=== PATIENT | female | born 1955 | race Caucasian/White ===

== ENCOUNTER 2016-07-20 13:17 | Emergency (ER) | payer BC ==
--- NOTE | 2016-07-20 14:43 | ED ---
Throat Pain/Nasal Congestion - History of Current Complaint Chief Complaint: EDEyeProblem Hx Obtained From: Patient Onset/Duration: Sudden Onset - was reading newspaper today when saw a flash of light in L eye and now has floaters. no pain, redness or drainage. no loss eyesight Associated Signs And Symptoms: Positive: Negative - Allergies/Home Medications Allergies/Adverse Reactions: Allergies Allergy/AdvReac Type Severity Reaction Status Date / Time No Known Allergies Allergy Verified 07/20/16 13:50 PMH/Surg Hx/FS Hx/Imm Hx Previously Healthy: Yes Endocrine/Hematology History: Denies: Hx Diabetes, Hx Thyroid Disease Cardiovascular History: Denies: Hx Hypertension, Hx Pacemaker/ICD Respiratory History: Denies: Hx Asthma, Hx Chronic Obstructive Pulmonary Disease (COPD) GI History: Reports: Hx Gastroesophageal Reflux Disease - ON MEDICATION FOR Denies: Hx Ulcer History: Denies: Hx Dialysis, Hx Renal Disease Musculoskeletal History: Reports: Hx Arthritis - HANDS, KNEES, ELBOWS, AND SPINE , Other Musculoskeletal History - Chronic Pain Sensory History: Reports: Hx Contacts or Glasses - GLASSES, Other Sensory Impairments - states had small retinal detachment 1-2years ago that healed w/o treatment Denies: Hx Hearing Aid Opthamlomology History: Reports: Hx Contacts or Glasses - GLASSES, Hx Macular Degeneration Denies: Hx Cataracts Neurological History: Denies: Hx Migraine Psychiatric History: Reports: Hx Depression - ON MEDICATION FOR Denies: Hx Panic Disorder - Cancer History Cancer Type, Location and Year: RT BREAST - LUMPECTOMY Hx Chemotherapy: No Hx Radiation Therapy: Yes - BREAST - Surgical History Surgery Procedure, Year, and Place: 2007 Lumpectomy - Rt BREAST W/ RADIATION. Cholecystectomy. Esophageal Stricture. Tonsillectomy. Sinus Surgery. Hysterectomy 08/22. VULVECTOMY - PARTIAL Hx Anesthesia Reactions: No Infectious Disease History: No Infectious Disease History: Denies: Hx Hepatitis, Hx Human Immunodeficiency Virus (HIV), Traveled Outside the [place] in Last 30 Days - Family History Known Family History: Positive: Hypertension, Other - CVA (father) - Social History Occupation: Employed Full-time Lives: With Family Alcohol Use: Weekly Alcohol Amount: 1-2 times per week Substance Use Type: Reports: None Substance Use Comment - Amount & Last Used: tramadol Smoking Status (MU): Former Smoker Type: Cigarettes Review of Systems Constitutional: Negative Negative: Fever, Chills Positive: Other - see note Cardiovascular: Negative Respiratory: Negative Gastrointestinal: Negative Negative: Vomiting Musculoskeletal: Negative Skin: Negative Negative: Rash Neurological: Negative Negative: Headache, Weakness Psychological: Normal All Other Systems Reviewed And Are Negative: Yes Physical Exam Triage Information Reviewed: Yes Vital Signs On Initial Exam: Initial Vitals Temp Pulse Resp BP Pulse Ox 98.1 F 72 15 124/81 99 07/20/16 13:20 07/20/16 13:20 07/20/16 13:20 07/20/16 13:20 07/20/16 13:20 Vital Signs Reviewed: Yes Appearance: Positive: Well-Appearing, No Pain Distress, Well-Nourished Skin: Positive: Warm, Skin Color Reflects Adequate Perfusion, Dry Head/Face: Positive: Normal Head/Face Inspection Eyes: Positive: EOMI, VALENTE, Conjunctiva Clear, Other: - detached retina not detected fundoscopic exam normal. Negative: Discharge Respiratory/Lung Sounds: Positive: Clear to Auscultation Cardiovascular: Positive: Normal Neurological: Positive: Normal, Sensory/Motor Intact, Alert, Oriented to Person Place, Time Psychiatric: Positive: Normal Diagnostics - Vital Signs Vital Signs Temp Pulse Resp BP Pulse Ox 07/20/16 13:20 98.1 F 72 15 124/81 99 - Laboratory Lab Statement: Any lab studies that have been ordered have been reviewed, and results considered in the medical decision making process. EENT Course/Dx - Differential Diagnoses Differential Diagnoses: Conjunctivitis, Detached Retina, Other - macular degeneration - Diagnoses Provider Diagnoses: Floaters in visual field Discharge - Discharge Plan Condition: Stable Disposition: HOME Patient Education Materials: Visual Floaters (ED) Forms: *Work Release Referrals: Sagrario Medel MD [Primary Care Provider] - Law Fink MD [Medical Doctor] - (call tomorrow morning to be examined) Additional Instructions: If anything worsens at anytime-return to ER Rest, be seen by Dr. Fink tomorrow
[2016-07-20 15:00] VITALS: BP 127/68
== END 2016-07-20 14:58 | disposition home or self-care (01) ==
LOC: ED 13:17
DX: H43.392 Other vitreous opacities, left eye (principal); F32.9 Major depressive disorder, single episode, unspecified; Z87.891 Personal history of nicotine dependence
CPT/HCPCS: 99282

== ENCOUNTER 2019-09-24 13:21 | Emergency (ER) | payer OTHER ==
--- OUTSIDE RECORDS SUMMARY | 2019-09-24 13:28 | XMS REPORT | Continuity of Care Document ---
:1955 External Reference #:[id number] Author Name Nikki Steinberg, N.P. (transmitted by agent of provider Shelly Santos) Address [address], [place] [address] Care Team Providers Name Role Phone Sagrario Medel MD - Internal Care Team Information Leather Case Finisher [phone] Medicine Mario Gilbert MD - Hematology Care Team Information Leather Case Finisher [phone] Clarissa Lowe OD - Tar Pot Worker Care Team Information Leather Case Finisher Problems Active Problems Provider Date Malignant neoplasm of female breast Sagrario Medel M.D. Onset: 08/09/2010 Chronic neck pain Sagrario Medel M.D. Onset: 06/28/2015 Vulval intraepithelial neoplasia grade 3 Sagrario Medel M.D. Onset: 2014 Social History Type Date Description Comments Sex Unknown Tobacco Use Start: Unknown End: Former Cigarette Smoker 1 Unknown Pack Daily Cigarette Use Pack Years - 20 Cigarette Use Quit - Age 41 ETOH Use Drinks 4 Alcoholic Beverages on weekends only Per Week Tobacco Use Start: Unknown End: Patient is a former smoker quit 1996 Unknown Smoking Status Reviewed: 08/15/19 Patient is a former smoker quit 1996 Allergies, Adverse Reactions, Alerts Description No Known Drug Allergies Medications Active Medications SIG Qnty Indications Ordering Date Provider Atorvastatin Calcium take 1 tablet 30tabs E78.00 Nikki Steinberg, 08/15/2019 20mg Tablets by mouth at N.P. bedtime Hydrochlorothiazide 1 by mouth 90tabs I10 Nikki Steinberg, 08/15/2019 25mg Tablets every day N.P. Trazodone HCL 1 and 1/2 45tabs Sagrario 06/28/2015 50mg Tablets tablets once Eliana Medel. daily at bedtime Centrum Silver 1 po qd Unknown Chewtabs Cymbalta 1 po qd Unknown 40mg Caps DR Part Acetaminophen take 2 tablets 100caps Unknown 500mg Capsules three times daily as needed Bupropion HCL ER (SR) 1 by mouth 60tabs Unknown 150mg once daily Tablets ER 12HR Naproxen 1 tablet with Unknown 500mg Tablets food by mouth twice a day Nucynta ER take 1 tablet Unknown 100mg Tablets ER 12HR by mouth twice a day if needed for pain Hydrocodone-Acetaminophen Unknown 5-325mg Tablets Medications Administered in Office Medication SIG Qnty Indications Ordering Provider Date Records Fee Sagrario Medel M.D. 05/17/2019 Injection Influenza,Unspecified Unknown 03/19/2018 Injection Immunizations CPT Code Status Date Vaccine Lot # [id number] Given 02/06/2018 Zoster (Shingles) Vaccine (HZV), Recombinant, Subunit, Adjuvanted 04225 Given 08/09/2017 Zoster (Shingles) Vaccine (HZV), Recombinant, Subunit, Adjuvanted 14198 Given 05/08/2017 Influenza Virus Vaccine, Quadrivalent, Split, Preservative Free [id number] Given 04/02/2016 Afluria Vaccine 06547 Given 03/31/2015 Influenza Virus Vaccine, Quadrivalent, Split, Preservative Free [id number] Given 03/08/2012 Tdap - Tetanus/Diptheria/Acellular Pertussis [id number] Vital Signs Date Vital Result Comment 08/15/2019 9:21am Height 61.5 inches 5'1.50" Weight 129.38 lb Heart Rate 79 /min BP Systolic Sitting 140 mmHg BP Diastolic Sitting 80 mmHg Body Temperature 97.6 F O2 % BldC Oximetry 97 % BMI (Body Mass Index) 24.0 kg/m2 08/12/2018 11:26am Height 61.5 inches 5'1.50" Weight 126.00 lb Heart Rate 72 /min BP Systolic 148 mmHg BP Diastolic 86 mmHg Body Temperature 98.6 F O2 % BldC Oximetry 95 % BMI (Body Mass Index) 23.4 kg/m2 Results Test Acquired Date Facility Test Result H/L Range Note Lipid Profile 08/09/2019 [facility] Triglycerides 165 mg/dL 1 (Trig/Chol/HDL) [address] [place] [address] [phone] Cholesterol 264 mg/dL 2 HDL Cholesterol 79.9 mg/dL 3 LDL Cholesterol 151 mg/dL 4 Comp Metabolic 08/09/2019 [facility] Sodium 142 mmol/L Normal 135-[address] [place] [address] [phone] Potassium 4.9 mmol/L Normal 3.5-5.0 Chloride 106 mmol/L Normal 101-111 Co2 Carbon Dioxide 31 mmol/L Normal 22-32 Anion Gap 5 mmol/L Normal 2-11 Glucose 87 mg/dL Normal 70-100 Blood Urea Nitrogen 18 mg/dL Normal 6-24 Creatinine 0.85 mg/dL Normal 0.51-0.95 BUN/Creatinine Ratio 21.2 High 8-20 Calcium 9.3 mg/dL Normal 8.6-10.3 Total Protein 6.4 g/dL Normal 6.4-8.9 Albumin 4.4 g/dL Normal 3.2-5.2 Globulin 2.0 g/dL Normal 2-4 Albumin/Globulin Ratio 2.2 Normal 1-3 Total Bilirubin 0.60 mg/dL Normal 0.2-1.0 Alkaline Phosphatase 93 U/L Normal 34-104 Alt 25 U/L Normal 7-52 Ast 23 U/L Normal 13-39 Egfr Non- 68.0 >60 Egfr 82.3 >60 5 Drug Screen 07/29/2019 [facility] Urine None Detected None Detect Urine Pain [address] [place] [address] Screen [phone] Urine Oxycodone Screen None Detected None Detect Urine Fentanyl Screen None Detected None Detect Urine Methadone Screen None Detected None Detect Urine Buprenorphine Screen None Detected None Detect Urine Amphetamine Screen None Detected None Detect Urine Barbiturates Screen None Detected None Detect Urine Benzodiazepine Screen None Detected None Detect Urine Cannabinoids Screen None Detected None Detect Urine Cocaine Screen None Detected None Detect Urine Opiates Screen Presumptive Posi <SEE NOTE> Abnormal None Detect 6 Urine Phencyclidine Screen None Detected None Detect 7 Opiates 07/29/2019 [facility] Codeine Negative Cutoff: [address] Confirmation, ng/[place] [address] Urine [phone] Dihydrocodeine Conf, Urine 139 ng/mL Cutoff: 25 Hydrocodone Confirm, Urine 101 ng/mL Cutoff: 25 Norhydrocodone Confirm, Urine 379 ng/mL Cutoff: 25 Hydromorphone Confirm, Urine 39 ng/mL Cutoff: 25 Morphine Confirm, Urine Negative ng/mL Cutoff: 25 Oxymorphone Confirm, Urine Negative ng/mL Cutoff: 25 Noroxymorphone Confirm, Urine Negative ng/mL Cutoff: 25 Naloxone Confirm, Urine Negative ng/mL Cutoff: 25 Oxycodone Confirm, Urine Negative ng/mL Cutoff: 25 Noroxycodone Confirm, Urine Negative ng/mL Cutoff: 25 Opiates Interpretation, Urine Positive. 8 Tapentadol 07/29/2019 [facility] Tapentadol [id number] Cutoff:[address] Urine ng/mL [place], [place] [id number] [phone] N-desmethyltapentadol Present ng/mL Cutoff:25 9 1 Desirable: <150 Borderline High: 150-199 High: 200-499 Very High: >500 2 Desirable: <200 Borderline High: 200-239 High: >239 3 Low: <40 Desirable: 40-60 High: >60 4 Desirable: <100 Near Optimal: 100-129 Borderline High: 130-159 High: 160-189 Very High: >189 5 Because ethnic data is not always readily available, this report includes an eGFR for both -Americans and non- Americans. The National Kidney Disease Education Program (NKDEP) does not endorse the use of the MDRD equation for patients that are not between the ages of 18 and 70, are , have extremes of body size, muscle mass, or nutritional status, or are non- or non-. According to the National Kidney Foundation, irrespective of diagnosis, the stage of the disease is based on the level of kidney function: Stage Description GFR(mL/min/1.73 m(2)) 1 Kidney damage with normal or decreased GFR 90 2 Kidney damage with mild decrease in GFR 60-89 3 Moderate decrease in GFR 30-59 4 Severe decrease in GFR 15-29 5 Kidney failure <15 (or dialysis) 6 Presumptive Positive Presumptive positive results are unconfirmed. 7 The specimen was tested at the listed cutoffs: Drug Class Test level (ng/mL) Hydrocodone 300 Oxycodone 100 Fentanyl 1 Methadone 150 Buprenorphine 5 Amphetamines 500 Barbiturates 200 Benzodiazepines 200 Cocaine 150 Cannabinoids 50 Opiates 300 PCP 25 Specimen was received without chain of custody. Results should be used for medical purposes only. 8 ADDITIONAL INFORMATION This report is intended for use in clinical monitoring and management of patients. It is not intended for use in employment-related testing. This test was developed and its performance characteristics determined by [facility] in a manner consistent with CLIA requirements. This test has not been cleared or approved by the U.S. Food and Drug Administration. Test Performed by: [place] [address] Kettle Room Helper: Werner Day M.D. Ph.D.; CLIA# [id number] ADDITIONAL INFORMATION Testing performed by Liquid Chromatography-Tandem Mass Spectrometry (LC-MS/MS). This test was developed and its performance characteristics determined by [facility] in a manner consistent with CLIA requirements. This test has not been cleared or approved by the U.S. Food and Drug Administration. Test Performed by: [facility] [place] [address] Kettle Room Helper: Werner Day M.D. Ph.D.; CLIA# [id number] Procedures Date Code Description Status 08/09/2019 [id number] Mammogram Completed 08/23/2018 [id number] Mammogram Completed 08/06/2017 [id number] Mammogram Completed 07/31/2016 [id number] Mammogram Completed 07/30/2015 [id number] Mammogram Completed 07/27/2014 [id number] Mammogram Completed 10/25/2013 [id number] Colonoscopy Completed 03/28/2013 [id number] Mammogram Completed 03/25/2012 [id number] Mammogram Completed 08/15/2010 [id number] Bone Mineral Density Test Completed 08/15/2010 [id number] Mammogram Completed 06/19/2009 [id number] Colonoscopy Completed 01/18/2008 [id number] Mammogram Completed 07/20/2007 [id number] Mammogram Completed 07/20/2006 [id number] Mammogram Completed 07/02/2005 [id number] Mammogram Completed Medical Devices Description No Information Available Encounters Description No Information Available Assessments Date Code Description Provider 08/15/2019 Z00.00 Encounter for general adult medical Nikki Steinberg N.Panda examination without abnormal findings 08/15/2019 Z85.3 Personal history of malignant neoplasm of Nikki Steinberg, N.P. breast 08/15/2019 Z87.412 Personal history of vulvar dysplasia Nikki Steinberg N.P. 08/15/2019 E78.00 Pure hypercholesterolemia, unspecified Nikki Steinberg, N.P. 08/15/2019 F33.9 Major depressive disorder, recurrent, Nikki Steinberg, N.P. unspecified 08/15/2019 I10 Essential (primary) hypertension Nikki Steinberg N.P. Plan of Treatment Future Appointment(s):10/18/2019 10:00 am - [facility] Nikki Steinberg N.P.Z00.00 Encounter for general adult medical examination without abnormal findingsComments:For your routine health maintenance: I encourage you to continue with regular exercise and healthy nutrition. You need to be getting between 1,000 - 1,200 mg of Calcium in daily. The best way to supplement what you get in your diet is to drink Calcium fortified orange juice. If you take a Calcium supplement be sure it has Vitamin D in it to help absorption. Your colonoscopy is up to date. You had this in 2013. You will need this repeated in 2023. Your Tetanus immunization is up to date. You receivedthis in 2011. It is good for 10 years unless you have a major injury, then it is good for 5 years. You just had a mammogram in June and will need this repeated next June.Z85.3 Personal history of malignant neoplasm of tufsriZ98.412 Personal history of vulvar dysplasiaNew Labs:Cytology , Ordered: 08/15/19Comments:For your history of vulvar dysplasia please continue your management with your specialist.E78.00 Pure hypercholesterolemia, unspecifiedNew Medication:Atorvastatin Calcium 20 mg - take 1 tablet by mouth at bedtimeComments:For your high cholesterol: I have prescribed Atorvastatin 20 mg. Take 1 tablet before bed. I want torecheck your labs in 8 weeks to be sure it's working and that your liver is tolerating it well. I will contact you with your results.F33.9 Major depressive disorder, recurrent, unspecifiedComments: For your depression:Continue your current management. I will be happy to take over prescribing your medications.I10 Essential (primary) hypertensionNew Medication:Hydrochlorothiazide 25 mg - 1 by mouth every dayComments:Your blood pressure is too high. I have prescribed Hydrochlorothiazide 25 mg. Take 1 tablet in the morning. Be sure to get potassium rich foods in.I would like you to monitor your blood pressure at home. If your readings at home are consistently higher than 140/90, please call the office.Follow up:HTN f/u 2 mo Functional Status Description No Information Available Mental Status Description No Information Available Referrals Description No Information Available
--- OUTSIDE RECORDS SUMMARY | 2019-09-24 13:28 | XMS REPORT | Continuity of Care Document ---
:1955 External Reference #:[id number] Author Name Nurse Visit A (transmitted by agent of provider Shelby Sidhu) Address [address], [place] [address] Care Team Providers Name Role Phone Sagrario Medel MD - Internal Care Team Information Economic Development Director Medicine Mario Gilbert MD - Hematology Care Team Information Economic Development Director Clarissa Lowe OD - Electronics Warfare Technician Care Team Information Economic Development Director [phone] Clarissa Lowe OD - Electronics Warfare Technician Care Team Information Economic Development Director Problems Active Problems Provider Date Malignant neoplasm [...] Medications SIG Qnty Indications Ordering Date Provider Vivotif one by mouth 4caps Nikki Steinberg, 08/16/[address] every other N.P. day for 4 doses Atorvastatin Calcium take 1 tablet 30tabs E78.00 Nikki Varn, 08/15/2019 20mg Tablets by mouth at N.P. bedtime Hydrochlorothiazide 1 by mouth 90tabs I10 Nikki Steinberg, 08/15/2019 25mg Tablets every day N.P. Trazodone HCL 1 and 1/2 45tabs Sagrario 06/28/2015 50mg Tablets tablets saul Medel M.D. daily at bedtime Centrum Silver 1 po [...] Injection Immunizations CPT Code Status Date Vaccine Reaction Lot # [id number] Given 08/17/2019 Hepatitis A Vaccine Adult No immediate reaction [id number] Dosage 58726 Given 02/06/2018 Zoster (Shingles) Vaccine (HZV), Recombinant, Subunit, Adjuvanted 17516 Given 08/09/2017 Zoster (Shingles) Vaccine (HZV), Recombinant, Subunit, Adjuvanted 63535 Given 05/08/2017 Influenza Virus Vaccine, Quadrivalent, Split, Preservative Free [id number] Given 04/02/2016 Afluria Vaccine 11941 Given 03/31/2015 Influenza Virus Vaccine, Quadrivalent, Split, Preservative Free 17851 Given 03/08/2012 Tdap - [id number] Tetanus/Diptheria/Acellular Pertussis Vital Signs Date Vital Result Comment 08/15/2019 [...] Date Facility Test Result H/L Range Note Cytology 08/15/2019 [facility] Cytology SEE RESULT BELOW 1 , 2 [address] [place] [address] [phone] PDFReport SEE IMAGE Lipid Profile 08/09/2019 [facility] Triglycerides 165 mg/dL 3 (Trig/Chol/HDL) [place] [address] [phone] Cholesterol 264 mg/dL 4 HDL Cholesterol 79.9 mg/dL 5 LDL Cholesterol 151 mg/dL 6 Comp Metabolic 08/09/2019 [facility] Sodium 142 mmol/L Normal 135-145 Panel [address] [place], [place] [id number] [phone] Potassium 4.9 mmol/L Normal 3.5-5.0 Chloride 106 [...] Egfr Non- 68.0 >60 Egfr 82.3 >60 7 Drug Screen 07/29/2019 [facility] Urine None Detected None Detect Urine Pain [address] [place] [address] Screen [phone] Urine Oxycodone Screen None Detected None Detect [...] Presumptive Posi <SEE NOTE> Abnormal None Detect 8 Urine Phencyclidine Screen None Detected None Detect 9 Opiates 07/29/2019 [facility] Codeine Negative Cutoff: [address] Confirmation, ng/[place] [address] Urine [phone] Dihydrocodeine Conf, Urine 139 ng/mL Cutoff: 25 [...] ng/mL Cutoff: 25 Opiates Interpretation, Urine Positive. 10 Tapentadol 07/29/2019 [facility] Tapentadol [id number] Cutoff:[address] Urine ng/[place] [address] [phone] N-desmethyltapentadol Present ng/mL Cutoff:25 11 1 [id number] 2 SEE RESULT BELOW Name: ADDIS TUBBS : [address]: Nikki Steinberg NP Acct: [id number] Unit: [id number] AGE: 63 Location: [facility] Re08/15/19 SEX: F Status: REG REF SPEC: [id number] LANA: 08/15/19-1011 [facility] [address]: Nikki Steinberg NP REQ: [id number] RECD: 08/15/19-1301 STATUS: SOUT _ ORDERED: TP IMAGE ANALYS, HPV/Thin Prep, HPV 16/18 GENE COMMENTS: [id number] FINAL DIAGNOSIS Negative for Intraepithelial lesion or Malignancy HPV RESULTS Date Time Test Result Flag (u) Normal Range 08/15/19 1011 HPV CARISSA RFLX GE Negative Negative The high-risk HPV types detected by the assay include: 16, 18, 31, 33, 35, 39, 45, 51, 52, 56, 58, 59, 66, and 68. SPECIMEN(S) RECEIVED A. Vaginal CYTOLOGY ADEQUACY Specimen Adequacy: Satisfactory of evaluation CONTINUED ON NEXT PAGE DEPARTMENT OF PATHOLOGY, [address] [place] [address] Maximiliano Lamas M.D. Director [facility] # [id number] CYTOLOGY PATIENT INFORMATION Patient Information: HPV: High risk HPV RNA testing regardless of pap results. HPV 16/18 Genotype Reflex Actual Specimen Date: 08/15/19 LMP If Unknown: age 50+/- Spec Date if unknown: 2019 ?: N Post Menopausal?: Y Hysterectomy?: Y Previous Abnormal Pap Smears?:Y If Yes, enter Diagnosis: History of MICKEY Signed by and Reported on: LILA Tadeo(ASCP) [id number] This Pap test was evaluated with the assistance of the ThinPrep Test Imaging System. Due to cytologic findings at the anodic operator microscope, comprehensive manual rescreening by a Garment Cutter may be required. The Pap Smear is a screening test designed to aid in the detection of premalignant and malignant conditions of the uterine cervix. It is not a diagnostic procedure and should not be used as the sole means of detecting cervical cancer. Both false- positive and false- negative reports do occur. Depending on your risk status, a Pap smear should be obtained and evaluated every 1-3 years. END OF REPORT DEPARTMENT OF PATHOLOGY, [address] [place] [address] Maximiliano Lamas M.D. Director [facility] # [id number] 3 Desirable: <150 Borderline High: 150-199 High: 200-499 Very High: >500 4 Desirable: <200 Borderline High: 200-239 High: >239 5 Low: <40 Desirable: 40-60 High: >60 6 Desirable: <100 Near Optimal: 100-129 Borderline High: 130-159 High: 160-189 Very High: >189 7 Because ethnic data is not always readily [...] 15-29 5 Kidney failure <15 (or dialysis) 8 Presumptive Positive Presumptive positive results are unconfirmed. 9 The specimen was tested at the listed cutoffs: Drug Class Test level (ng/mL) Hydrocodone 300 Oxycodone 100 Fentanyl 1 Methadone 150 Buprenorphine 5 Amphetamines 500 Barbiturates 200 Benzodiazepines 200 Cocaine 150 Cannabinoids 50 Opiates 300 PCP 25 Specimen was received without chain of custody. Results should be used for medical purposes only. 10 ADDITIONAL INFORMATION This report is intended for use in clinical monitoring and management of patients. It is not intended for use in employment-related testing. This test was developed and its performance characteristics determined by [facility] in a manner consistent with CLIA requirements. This test has not been cleared or approved by the U.S. Food and Drug Administration. Test Performed by: [facility] [address] [place] [address] Mutuel Teller: Werner Day M.D. Ph.D.; CLIA# [id number] 11 ADDITIONAL INFORMATION Testing performed by Liquid Chromatography-Tandem Mass Spectrometry (LC-MS/MS). This test was developed and its performance characteristics determined by [facility] in a manner consistent with CLIA requirements. This test has not been cleared or approved by the U.S. Food and Drug Administration. Test Performed by: [facility] [address] [facility], [place] [address] Mutuel Teller: Werner Day M.D. Ph.D.; CLIA# [id number] Procedures Date Code Description Status 08/09/2019 [id number] Mammogram Completed 08/23/2018 [id number] Mammogram Completed 08/06/2017 [id number] Mammogram Completed 07/31/2016 [id number] Mammogram Completed 07/30/2015 [id number] Mammogram Completed 07/27/2014 21437589 Mammogram Completed 10/25/2013 [id number] Colonoscopy Completed 03/28/2013 [id number] Mammogram Completed 03/25/2012 [id number] Mammogram Completed 08/15/2010 148840293 Bone Mineral Density Test Completed 08/15/2010 [id number] Mammogram Completed 06/19/2009 [id number] Colonoscopy Completed 01/18/2008 [id number] Mammogram Completed 07/20/2007 [id number] Mammogram Completed 07/20/2006 [id number] Mammogram Completed 07/02/2005 [id number] Mammogram Completed Medical Devices Description No Information Available Encounters Description No Information Available Assessments Date Code Description Provider 08/15/2019 Z00.00 Encounter for general adult medical Nikki Steinberg N.PAdrian examination without abnormal findings 08/15/2019 Z85.3 Personal history of malignant neoplasm of Nikki Kieran, N.P. 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 08/15/2019 E78.00 Pure hypercholesterolemia, unspecified Nikki Varn, N.P. 08/15/2019 F33.9 Major depressive disorder, recurrent, Nikki Varn, N.P. unspecified 08/15/2019 I10 Essential (primary) hypertension Nikki Steinberg, N.P. Plan of Treatment Future Appointment(s):10/18/2019 10:00 am - Nikki Steinberg N.P. at [facility] [place] - Nikki Steinberg, N.P.Z00.00 Encounter for general adult medical examination [...] June and will need this repeated next December.Z85.3 Personal history of malignant neoplasm of aqxvqyA51.412 Personal history of vulvar dysplasiaComments:For your history of vulvar dysplasia please continue your management with your specialist.E78.00 Pure hypercholesterolemia, unspecifiedNew Medication: Atorvastatin Calcium 20 mg - take 1 tablet by mouth at bedtimeComments:For your high cholesterol: I have prescribed Atorvastatin 20 mg. Take 1 tablet before bed. I want torecheck your labs in 8 weeks to be sure it's working and that your liver is tolerating it well. I will contact you with your results.F33.9 Major depressive disorder, recurrent, unspecifiedComments:For your depression: Continue your current management. I will be happy to take over prescribing your medications.I10 Essential (primary) hypertensionNew Medication: Hydrochlorothiazide 25 mg - 1 by mouth every [...]
[2019-09-24 13:46] VITALS: BP 129/79
--- NOTE | 2019-09-24 15:37 | UC ---
Lower Extremity/Ankle HPI - HPI Summary HPI Summary: while patient was on vacation she fell down stairs and has a fibula fracture--- a splint was applied (patient fears it was not in sanitary conditions) and she had open areas on her skin---she has no fevers but is fearful of infection--- patient has a plaster splint on---this incident occurred several days ago - History of Current Complaint Chief Complaint: UCLowerExtremity Stated Complaint: LEG INJURY Time Seen by Provider: 09/24/19 15:16 Hx Obtained From: Patient ?: No Onset/Duration: Lasting Days Pain Intensity: 4 Pain Scale Used: 0-10 Numeric Aggravating Factor(s): Standing, Ambulation Alleviating Factor(s): Rest, Elevation Able to Bear Weight: No - Allergies/Home Medications Allergies/Adverse Reactions: Allergies Allergy/AdvReac Type Severity Reaction Status Date / Time No Known Allergies Allergy Verified 09/24/19 13:47 Home Medications: Home Medications Multivitamin [Multivitamins] 1 cap PO DAILY 06/09/12 [History Confirmed 09/24/19 ] Trazodone HCl 50 mg PO BEDTIME 06/09/12 [History Confirmed 09/24/19] Naproxen TAB* [Naprosyn TAB*] 500 mg PO BID 05/27/16 [History Confirmed 09/24/19 ] Lidocaine 5 % EX QID PRN 07/29/16 [History Confirmed 09/24/19] HYDROcodone/ACETAMIN 5-325 MG* [[place] 5-325 TAB*] 1 tab PO BID PRN MDD 2 [History Confirmed 09/24/19] DULoxetine DR CAP* [Cymbalta CAP*] 40 mg PO DAILY 12/22/16 [History Confirmed ] Cyclobenzaprine (NF) [Cyclobenzaprine 5 MG (NF)] 5 mg PO TID PRN 09/11/17 [ History Confirmed 09/24/19] Tapentadol ER (NF) [Nucynta ER (NF)] 100 mg PO BID 07/30/18 [History Confirmed 09/24/19] Naldemedine Tosylate [Symproic] 0.2 mg PO DAILY 01/05/19 [History Confirmed ] Atorvastatin* [Lipitor 20 MG*] 1 tab PO DAILY 09/24/19 [History Confirmed ] Hydrochlorothiazide TAB* [Hydrodiuril TAB*] 1 tab PO DAILY 09/24/19 [History Confirmed 09/24/19] PMH/Surg Hx/FS Hx/Imm Hx Endocrine History: Dyslipidemia Cardiovascular History: Hypertension Psychological History: Depression - Surgical History Surgical History: Yes Surgery Procedure, Year, and Place: 2007 Lumpectomy - Rt BREAST W/ RADIATION. Cholecystectomy. Esophageal Stricture. Tonsillectomy. Sinus Surgery. Hysterectomy 08/22. VULVECTOMY - PARTIAL - Family History Known Family History: Positive: Hypertension, Other - CVA (father) - Social History Occupation: Retired Lives: With Family Alcohol Use: Daily Alcohol Amount: 14 drinks per week Substance Use Type: None Substance Use Comment - Amount & Last Used: tramadol Smoking Status (MU): Former Smoker Type: Cigarettes When Did the Patient Quit Smoking/Using Tobacco: 1993 Review of Systems All Other Systems Reviewed And Are Negative: Yes Constitutional: Positive: Negative Skin: Positive: Negative Eyes: Positive: Negative ENT: Positive: Negative Respiratory: Positive: Negative Cardiovascular: Positive: Negative Gastrointestinal: Positive: Negative Genitourinary: Positive: Negative Motor: Positive: Negative Neurovascular: Positive: Negative Musculoskeletal: Positive: Arthralgia - left ankle/lower leg Neurological/Mental Status: Positive: Negative Psychological: Positive: Negative Is Patient Immunocompromised?: No Physical Exam Triage Information Reviewed: Yes Appearance: Well-Appearing, No Pain Distress, Well-Nourished Vital Signs: Initial Vital Signs Temp 0 F 09/24/19 13:39 Pulse 100 09/24/19 13:39 Resp 18 09/24/19 13:39 BP 129/79 09/24/19 13:39 Pulse Ox 98 09/24/19 13:39 Vital Signs Reviewed: Yes Eye Exam: Normal Eyes: Positive: Conjunctiva Clear ENT Exam: Normal ENT: Positive: Normal ENT inspection, Hearing grossly normal. Negative: Trismus , Muffled voice, Hoarse voice Dental Exam: Normal Neck exam: Normal Neck: Positive: Supple, Nontender Respiratory Exam: Normal Respiratory: Positive: Chest non-tender, No respiratory distress, No accessory muscle use Cardiovascular Exam: Normal Cardiovascular: Positive: RRR, Pulses Normal, Brisk Capillary Refill Musculoskeletal Exam: Other Musculoskeletal: Positive: Other: - right leg , wnl, no pain in left calf--- healing blisters noted on left lower leg with resolving bruising no evidence of infection Neurological Exam: Normal Neurological: Positive: Alert, Muscle Tone Normal Psychological Exam: Normal Psychological: Positive: Normal Response To Family Skin: Positive: Other - resolving blisters on left lower leg no evidence of infection Re-Evaluation - Re-Evaluation First Eval Change: Improved - cam boot applied for immoblization, non weight bearing follow with ortho this week Lower Extremity Course/Dx - Course Course Of Treatment: rice, cam boot, crutches, non weight bearing pain, med as rx'd, follow with ortho this week - Differential Dx/Diagnosis Provider Diagnosis: Closed left ankle fracture Discharge ED - Sign-Out/Discharge Documenting (check all that apply): Patient Departure All imaging exams completed and their final reports reviewed: No Studies - Discharge Plan Condition: Stable Disposition: HOME Patient Education Materials: Ankle Fracture (ED), R.I.C.E. Treatment (ED) Referrals: Dennis Hollis MD [Medical Doctor] - 2 Days - Billing Disposition and Condition Condition: STABLE Disposition: Home
== END 2019-09-24 16:05 | disposition home or self-care (01) ==
LOC: UCEAST 13:21
DX: S82.892A Other fracture of left lower leg, initial encounter for closed fracture (principal); W10.9XXA Fall (on) (from) unspecified stairs and steps, initial encounter; Y92.9 Unspecified place or not applicable; E78.5 Hyperlipidemia, unspecified; I10 Essential (primary) hypertension; F32.9 Major depressive disorder, single episode, unspecified; Z79.899 Other long term (current) drug therapy; Z87.891 Personal history of nicotine dependence
CPT/HCPCS: 99212; G0463